=== PATIENT | male | born 1960 | race Caucasian/White ===

== ENCOUNTER 2016-08-04 13:48 | Emergency (ER) | payer OTHER ==
[2016-08-04] MEDS ORDERED: IBUPROFEN 800 MG TAB PO STA (14:15)
--- NOTE | 2016-08-04 14:50 | XR ---
EXAMINATION TYPE: XR foot complete RT DATE OF EXAM: 08/04/2016 COMPARISON: NONE HISTORY: Pain N on right foot laceration to toes TECHNIQUE: 3 views right foot FINDINGS: There are multiple comminuted fractures of the consuelo of the third fourth and fifth digits r ight foot. Additionally, some fracture fragments of the middle phalanx fifth digit are also evident. IMPRESSION: 1. Comminuted fractures distal third fourth and fifth digit as well as fracture of the middle phalan x right fifth digit.
[2016-08-04] MEDS ORDERED: DIPH,PERTUS(ACELL)TETVAC-LF 0.5 ML VIAL IM ONE (17:00)
[2016-08-04] MEDS ORDERED: ceFAZolin 1,000 MG VIAL IM STA (17:00)
[2016-08-04] MEDS ORDERED: HYDROcodone/APAP 5-325MG 1 EACH TAB PO STA (17:01)
--- NOTE | 2016-08-04 17:47 | ED ---
Lower Extremity Injury HPI - General Chief Complaint: Extremity Injury, Lower Stated Complaint: R foot laceration Time Seen by Provider: 08/04/16 14:10 Source: patient Mode of arrival: wheelchair Limitations: no limitations - History of Present Illness Initial Comments: Patient is a 55-year-old male presenting to the emergency department with complaints of right foot injury. Patient states he was unloading a piece of plywood off his truck when it fell and landed on his toes. Patient states he was wearing slippers. Patient is currently complaining of sharp pain, rated 6 out of 10, exacerbated with movement, relieved with rest. Onset of injury approximately one hour prior to arrival. Patient denies previous injury or surgery to right lower extremity. Patient states it has been longer than 5 years since he's had his last tetanus immunization. Patient denies recent illness, fevers, nausea, vomiting, shortness of breath, chest pain, or abdominal pain. Patient denies numbness or tingling. Patient states he was ambulatory at scene of injury. Patient denies treatment prior to arrival. - Related Data Previous Rx's Medication Instructions Recorded Cephalexin [Keflex] 500 mg PO Q6HR #28 cap 08/04/16 HYDROcodone/APAP 5-325MG [Hector 1 tab PO Q4HR PRN #20 tab 08/04/16 5-325] Allergies Allergy/AdvReac Type Severity Reaction Status Date / Time No Known Allergies Allergy Verified 08/04/16 13:52 Review of Systems ROS Statement: Those systems with pertinent positive or pertinent negative responses have been documented in the HPI. ROS Other: All systems not noted in ROS Statement are negative. Past Medical History Past Medical History: No Reported History History of Any Multi-Drug Resistant Organisms: None Reported Past Surgical History: No Surgical Hx Reported Past Psychological History: No Psychological Hx Reported Smoking Status: Current every day smoker Past Alcohol Use History: None Reported Past Drug Use History: None Reported General Exam Limitations: no limitations General appearance: alert, in no apparent distress Head exam: Present: atraumatic, normocephalic, normal inspection Eye exam: Present: normal appearance. Absent: scleral icterus, conjunctival injection, periorbital swelling, periorbital tenderness ENT exam: Present: normal exam, normal oropharynx, mucous membranes moist, normal external ear exam Neck exam: Present: normal inspection, full ROM. Absent: tenderness Respiratory exam: Present: normal lung sounds bilaterally. Absent: respiratory distress, wheezes, rales, rhonchi, stridor Cardiovascular Exam: Present: regular rate, normal rhythm, normal heart sounds. Absent: systolic murmur, diastolic murmur, rubs, gallop, clicks GI/Abdominal exam: Present: soft, normal bowel sounds. Absent: tenderness Right Knee exam: Present: normal inspection, full ROM. Absent: tenderness, swelling Lower Leg exam: Present: normal inspection, full ROM. Absent: tenderness, swelling Ankle exam: Present: normal inspection, full ROM. Absent: tenderness, swelling Foot/Toe exam: Present: full ROM, tenderness (Tenderness, swelling, and bleeding to third, fourth, and fifth distal phalanx of right foot. ), swelling, laceration Neurovascular tendon exam: Present: no vascular compromise. Absent: pulse deficit, abnormal cap refill, motor deficit, sensory deficit, tendon deficit, extremity cold to touch, pallor, foot drop, significant pain with passive ROM of distal joint Gait: not tested/not observed Back exam: Present: normal inspection, full ROM Neurological exam: Present: alert, oriented X3, CN II-XII intact. Absent: motor sensory deficit Psychiatric exam: Present: normal affect, normal mood Skin exam: Present: warm, dry Course Vital Signs 08/04/16 13:50 Temperature 98.8 F Pulse Rate 63 Respiratory 20 Rate Blood Pressure 158/70 O2 Sat by Pulse 98 Oximetry Procedures - Laceration Laceration #1 Consent Obtained: verbal consent Indication: laceration Site: foot (Fifth phalanx on right foot) Size (cm): 2 Description: irregular Depth: simple, single layer Anesthetic Used: lidocaine 1% Anesthesia Technique: nerve block Amount (mls): 3 Pre-repair: wound explored, irrigated extensively, deep structures intact Type of Sutures: nylon Size of Sutures: 5-0 Number of Sutures: 9 Technique: simple, interrupted Patient Tolerated Procedure: well, no complications Laceration #2 Consent Obtained: verbal consent Indication: laceration Site: foot (Laceration to fourth phalanx) Size (cm): 2 Description: irregular Depth: simple, single layer Anesthetic Used: lidocaine 1% Anesthesia Technique: nerve block Amount (mls): 2 Pre-repair: wound explored, irrigated extensively, deep structures intact Type of Sutures: nylon Size of Sutures: 5-0 Number of Sutures: 3 Technique: simple, interrupted Patient Tolerated Procedure: well, no complications Laceration #3 Consent Obtained: verbal consent Indication: laceration Site: foot Size (cm): 1 Description: irregular Depth: simple, single layer Anesthetic Used: lidocaine 1% Anesthesia Technique: nerve block Amount (mls): 1 Pre-repair: wound explored, irrigated extensively, deep structures intact Type of Sutures: nylon Size of Sutures: 5-0 Number of Sutures: 3 Technique: simple, interrupted Patient Tolerated Procedure: well, no complications - Orthopedic Splinting/Casting Injury #1 Side: right Lower Extremity Immobilizer: posterior splint (Short leg OCL) Other Orthopedic Equipment: other (Patient has crutches at home) Medical Decision Making - Medical Decision Making Comminuted fractures distal third fourth and fifth digit as well as fracture of the middle phalanx right fifth digit. Lacerations to third, fourth, and fifth phalanx of right foot. Lacerations repaired. Patient tolerated procedure well. Patient placed in a short leg OCL. Patient given 1 dose of Ancef in the emergency department with prescription for Keflex in the outpatient setting. Patient instructed to follow-up with orthopedic service. Discharge instructions and return parameters reviewed. - Radiology Data Radiology results: report reviewed Right foot x-ray: Multiple comminuted fractures of the consuelo of the third, fourth, and fifth digits right foot. Additionally, some fracture fragments of the middle phalanx fifth digit are also evident. Impression: 1. Comminuted fractures distal third fourth and fifth digit as well as fracture of the middle phalanx right fifth digit. As read by radiologist Dr. Mckenzie. Disposition Clinical Impression: Laceration of fifth toe, right, Laceration of fourth toe, right, Laceration of third toe, right, Open fracture of multiple phalanges of toe of right foot Disposition: HOME SELF-CARE Condition: Good Instructions: Care For Your Stitches (ED), Laceration (ED), Toe Fracture (ED), Splint Care (ED) Additional Instructions: Continue Tylenol or Motrin for pain. Elevate extremity as much as possible. Follow-up with orthopedic service as directed. Please return to the emergency department with increased pain, swelling, numbness or tingling, or cold foot. Postop wound care: Keep wound dry and clean for 24 hours; if dressing accidentally becomes wet, change dressing immediately. Gently clean the edges of the wound daily with a cotton swab saturated with peroxide to remove crust. Return immediately if signs of infection occur such as redness or red streaks progressing up and extremity, increasing pain, swelling, or fevers. Finish oral antibiotics as prescribed. Please return for suture removal in 7-12 days or sooner if complications. Prescriptions: Cephalexin [Keflex] 500 mg PO Q6HR #28 cap HYDROcodone/APAP 5-325MG [Hector 5-325] 1 tab PO Q4HR PRN #20 tab PRN Reason: Pain Referrals: None,Stated [Primary Care Provider] - 1-2 days Blue Ureña MD [STAFF PHYSICIAN] - 1-2 days Time of Disposition: 17:47
[2016-08-04 18:03] VITALS: BP 152/82; PULSE 69; RESP 18; TEMP 98
== END 2016-08-04 18:05 | disposition home or self-care (01) ==
LOC: EC 13:48
DX: S92.531B Displaced fracture of distal phalanx of right lesser toe(s), initial encounter for open fracture (principal); S92.521B Displaced fracture of middle phalanx of right lesser toe(s), initial encounter for open fracture; S91.114A Laceration without foreign body of right lesser toe(s) without damage to nail, initial encounter; F17.200 Nicotine dependence, unspecified, uncomplicated; Z23 Encounter for immunization; W20.8XXA Other cause of strike by thrown, projected or falling object, initial encounter; Y93.89 Activity, other specified
CPT/HCPCS: 99283; 96372; 12002; 29515; 90471; 73630; 90715; J0690